=== PATIENT | female | born 1990 | race Caucasian/White ===

== ENCOUNTER 2016-10-27 14:53 | Emergency (ER) | payer MEDICAID ==
[~2016-10-27] VITALS: Ht 162.6 cm; Wt 53.1 kg
[2016-10-27 14:54] VITALS: BP 136/90
[2016-10-27] MEDS ORDERED: PENI500T PO (15:50)
[2016-10-27] MEDS ORDERED: NORCOTAB PO (15:50)
== END 2016-10-27 16:01 | disposition home or self-care (01) ==
LOC: M ED 14:53
DX: K02.9 Dental caries, unspecified (principal); F17.210 Nicotine dependence, cigarettes, uncomplicated

== ENCOUNTER 2017-08-13 17:18 | Emergency (ER) | payer SELFPAY, MEDICAID, OTHER ==
[2017-08-13 19:19] LABS: HEMOGLOBIN 12.9 g/dl (12.0-15.5); MEAN CORPUSCULAR HGB CONC 33.1 g/dl (32.0-36.5); MEAN CORPUSCULAR VOLUME 84.6 fl (80.0-96.0); PLATELET COUNT, AUTOMATED 116 10^3/uL (150-450); RED BLOOD COUNT 4.61 10^6/uL (4.00-5.40); RED CELL DISTRIBUTION WIDTH 14.3 % (11.5-14.5); WHITE BLOOD COUNT 3.8 10^3/uL (4.0-10.0)
[2017-08-13 19:47] LABS: ADD MANUAL DIFFER YES; ALBUMIN 3.6 GM/DL (3.2-5.2); ALBUMIN/GLOBULIN RATIO 0.92 (1.00-1.93); ALKALINE PHOSPHATASE 82 U/L (45-117); ALT/SGPT 100 U/L (12-78); ANION GAP 5 MEQ/L (8-16); AST/SGOT 119 U/L (7-37); BILIRUBIN,DIRECT 0.1 MG/DL (0.0-0.2); BILIRUBIN,TOTAL 0.4 MG/DL (0.2-1.0); BLOOD UREA NITROGEN 7 MG/DL (7-18); CALCIUM LEVEL 8.4 MG/DL (8.5-10.1); CARBON DIOXIDE LEVEL 27 MEQ/L (21-32); CHLORIDE LEVEL 108 MEQ/L (98-107); DIFF SLIDE NUMBER 337; FREE THYROXINE INDEX 3.2 % (1.3-4.8); GLOMERULAR FILTRATION RATE > 60.0 (>60); GLUCOSE, FASTING 83 MG/DL (70-100); POSITIVE MORPH POS FLAG; POTASSIUM SERUM 3.4 MEQ/L (3.5-5.1); SODIUM LEVEL 140 MEQ/L (136-145); T UPTAKE 31 % (30-39); THYROXINE (T4) 10.4 UG/DL (4.5-12.0); TOTAL PROTEIN 7.5 GM/DL (6.4-8.2)
[2017-08-13 19:54] LABS: AMORPHOUS SEDIMENT RFX LARGE (NEGATIVE); KETONE, URINE AUTO RFX NEGATIVE (NEGATIVE); LEUKOCYTE ESTERASE UR AUTO RFX NEGATIVE (NEGATIVE); MUCUS, URINE RFX LARGE (NEGATIVE); NITRITE, URINE AUTO RFX NEGATIVE (NEGATIVE); RBC, URINE AUTO RFX 0 /HPF (0-3); SQUAM EPITHELIAL CELL UR AURFX 3 /HPF (0-6); WBC, URINE AUTO RFX 2 /HPF (0-3)
[2017-08-13 20:13] LABS: ATYPICAL LYMPH 14 % (0-5); EOSINOPHILS 1 % (0-5); LYMPHOCYTES 35 % (16-52); MONOCYTES 3 % (0-8); NEUTROPHILS 47 % (35-75); PLATELET ESTIMATE DECREASED (NORMAL)
[2017-08-13 20:35] LABS: CONTROL LINE MONO RF C INT CTR LINE PRESENT; MONO REFLEX EBV COMP POSITIVE (NEGATIVE)
== END 2017-08-13 20:55 | disposition home or self-care (01) ==
LOC: M ED 17:18
DX: D69.6 Thrombocytopenia, unspecified (principal); R53.81 Other malaise; R53.83 Other fatigue
CPT/HCPCS: 84443

== ENCOUNTER → 2017-08-24 | Outpatient (REF) | payer BC | LOC: M LAB REF 10:40 | DX: J02.9 Acute pharyngitis, unspecified (principal) | CPT/HCPCS: 87070; 87077 ==

== ENCOUNTER 2019-12-05 16:20 | Emergency (ER) | payer SELFPAY ==
[~2019-12-05 16:20] MED LIST: ALEV220C2 PO; HYDR-3715 PO; PENI500T PO
[2019-12-05] MEDS ORDERED: AUGMENTIN 875 MG TAB ONE (20:32)
[2019-12-05] MEDS ORDERED: AUGMENTIN 875 MG TAB As Ordered ONE (20:32)
== END 2019-12-05 20:30 | disposition home or self-care (01) ==
LOC: M ED 16:20
DX: L08.9 Local infection of the skin and subcutaneous tissue, unspecified (principal); S91.352A Open bite, left foot, initial encounter; W55.01XA Bitten by cat, initial encounter; Y92.099 Unspecified place in other non-institutional residence as the place of occurrence of the external cause; Y93.89 Activity, other specified; Y99.9 Unspecified external cause status

== ENCOUNTER → 2020-05-07 | Outpatient (CLI) | payer SELFPAY | LOC: M LABSMTC 11:09 | PROVIDERS: ATTEND Pediatrics | DX: Z20.822 Contact with and (suspected) exposure to COVID-19 (principal) ==

== ENCOUNTER → 2020-05-30 | Outpatient (CLI) | payer MEDICAID ==
--- NOTE | 2020-05-30 17:55 | REP ---
INDICATION: UMBILICAL HERNIA W/ OBSTRUCTION COMPARISON: None. TECHNIQUE: Real time mendez scale ultrasound examination using curved array transducer. FINDINGS: A very small fat containing periumbilical hernia is identified with a peritoneal defect of 7 mm on Valsalva. IMPRESSION: Small fat containing periumbilical hernia. <Electronically signed by Kyler Jensen > 05/30/20 [id number]
== END ==
LOC: M RAD 10:49
PROVIDERS: ATTEND Surgery
DX: K42.0 Umbilical hernia with obstruction, without gangrene (principal)

== ENCOUNTER → 2020-06-20 | Outpatient (CLI) | payer MEDICAID, SELFPAY ==
[~2020-06-20] MED LIST changes: +ACET-907 PO; +IBUP200C27 PO
== END ==
LOC: M LABSMTC 10:47
PROVIDERS: ATTEND Anesthesiology
DX: Z01.812 Encounter for preprocedural laboratory examination (principal); Z20.822 Contact with and (suspected) exposure to COVID-19

== ENCOUNTER 2020-06-25 05:56 | Day surgery (SDC) | payer MEDICAID ==
[~2020-06-25] VITALS: Ht 162.6 cm; Wt 69.6 kg
[2020-06-25] MEDS ORDERED: ceFAZolin SOD 2 GM in IV 1 EA IV ONE (06:00)
[2020-06-25] MEDS ORDERED: LR 1,000 ML IV ONE (06:00)
[2020-06-25] MEDS ORDERED: LIDOCAINE 1% MDV 20ML VIAL SQ PRN (06:00)
[2020-06-25 06:24] LABS: HEMATOCRIT 37.3 % (36.0-47.0); HEMOGLOBIN 11.9 g/dl (12.0-15.5); MEAN CORPUSCULAR HEMOGLOBIN 28.4 pg (27.0-33.0); MEAN CORPUSCULAR HGB CONC 31.9 g/dl (32.0-36.5); PLATELET COUNT, AUTOMATED 281 10^3/uL (150-450); RED BLOOD COUNT 4.19 10^6/uL (4.00-5.40); WHITE BLOOD COUNT 6.4 10^3/uL (4.0-10.0)
[2020-06-25] MEDS ORDERED: SCOPOLAMINE 1MG TRANSDERMAL PATCH As Ordered ONE (07:09)
[2020-06-25] MEDS ORDERED: BUPIVACAINE/EPIN 0.25% 30 ML VIAL As Ordered ONE (07:16)
[2020-06-25] MEDS ORDERED: SCOPOLAMINE 1MG TRANSDERMAL PATCH TOP ONE (07:20)
[2020-06-25] MEDS ORDERED: ACETAMINOPHEN 1000MG 100ML IV BTL (OFIRMEV) (J0131 PER 10MG) As Ordered ONE (07:52)
[2020-06-25] MEDS ORDERED: KETOROLAC 60MG 2ML VIAL As Ordered ONE (07:52)
[2020-06-25] MEDS ORDERED: ONDANSETRON 4MG/2ML VIAL As Ordered ONE ×2 (07:52→08:50)
[2020-06-25] MEDS ORDERED: METOCLOPRAMIDE INJ 10MG/2ML VIAL (J2765 PER 1) As Ordered ONE (07:52)
[2020-06-25] MEDS ORDERED: fentaNYL 250 MCG/5 ML INJECTION (J3010) As Ordered ONE (07:52)
[2020-06-25] MEDS ORDERED: ePHEDrine SULFATE 25 MG/5 ML(5MG/ML) SYRINGE As Ordered ONE (07:52)
[2020-06-25] MEDS ORDERED: propofoL 200 MG/20 ML VIAL As Ordered ONE (07:52)
[2020-06-25] MEDS ORDERED: MIDAZOLAM INJ 2MG/2ML VIAL (J2250 PER 1MG) As Ordered ONE (07:52)
[2020-06-25] MEDS ORDERED: SUGAMMADEX SODIUM 500 MG/5 ML VIAL (BRIDION) As Ordered ONE (07:52)
[2020-06-25] MEDS ORDERED: dexameTHASONE 4 MG/ML 1ML VIAL (J1100 PER 1MG) As Ordered ONE (07:52)
[2020-06-25] MEDS ORDERED: ROCURONIUM BROMIDE 50 MG/5 ML VIAL As Ordered ONE (07:52)
[2020-06-25] MEDS ORDERED: LIDOCAINE 2% 100MG/5ML SDV (FOR ANES.) As Ordered ONE (07:52)
[2020-06-25] MEDS ORDERED: oxyCODONE 5MG TAB PO PRN (08:55)
[2020-06-25] MEDS ORDERED: NORCO, ANEXSIA 5/325MG TABLET (HYDROcodone/ACETAMINOPHEN) PO PRN (08:55)
[2020-06-25] MEDS ORDERED: HYDROMORPHONE HCL 0.5 MG/ 0.5 ML SYRINGE (J1170 PER 1) IV PRN (08:55)
[2020-06-25] MEDS ORDERED: LR 1,000 ML IV SCH (08:55)
[2020-06-25] MEDS ORDERED: fentaNYL 100 MCG/2 ML INJECTION (J3010) IV PRN (08:55)
[2020-06-25] MEDS ORDERED: ONDANSETRON 4MG/2ML VIAL IV PRN (08:55)
[2020-06-25 10:30] VITALS: BP 137/82
--- NOTE | 2020-06-25 10:52 | RO ---
OPERATIVE NOTE DATE OF OPERATION: 06/25/2020 PREOPERATIVE DIAGNOSIS: Incarcerated umbilical hernia. POSTOPERATIVE DIAGNOSIS: Incarcerated umbilical hernia. PROCEDURE: Robotic repair of incarcerated umbilical hernia. SURGEON: Naveed Hayden DO DIRECTOR OF DIGITAL MARKETING: Ciara Greenberg ANESTHESIA: General. EBL: 5. COMPLICATIONS: None. INDICATIONS FOR PROCEDURE: The patient is a 29-year-old female who presents with periumbilical pain, found to have lump on exam. Ultrasound was completed to confirm the findings of a small less than 1 cm umbilical hernia. Recommendation made to proceed with robotic repair. Risks and benefits of the procedure not limited to but including bleeding, infection, hernia recurrence, hernia formation, damage to surrounding structures, need for further surgery were discussed in detail with the patient, informed consent was obtained and procedure planned. DESCRIPTION OF PROCEDURE: The patient was brought back to operating room 7, after sufficient sedation the abdomen was sterilely prepped and draped. Time out was done to confirm proper patient, proper procedure. Following that an 8 mm incision was made in left upper quadrant, Veress needle inserted and abdomen was insufflated to 15 mmHg. The Veress needle was removed and 8 mm Optiview port was used to gain access to the abdomen. Once the abdomen was entered two more ports were placed, one subxiphoid just left of midline and one in right upper quadrant. The periumbilical region was examined. Horizontal incision was made into the preperitoneal space. Preperitoneal space was dissected inferiorly heading down around the umbilicus and hernia sac was dissected free. Once that was carefully dissected free the hernia defect was identified, it was very small. #0 Stratafix suture was used to reapproximate the small defect. This was covered with a 3 cm round ProGrip mesh. The peritoneum was then closed over top of this with running 2-0 V-Loc suture. This ended the procedure. The patient tolerated the procedure well. [place] were all removed. The ports were removed, abdomen was desufflated. Skin incisions closed with 4-0 Vicryl subcuticular sutures. The abdomen was cleaned and dried. Steri-Strips and 4 x 4 tapes were applied. This ended the procedure.
== END 2020-06-25 10:30 | disposition home or self-care (01) ==
LOC: M SDC 05:56
PROVIDERS: ATTEND Surgery
DX: K42.0 Umbilical hernia with obstruction, without gangrene (principal)
CPT/HCPCS: 36415; 49653; 81025; 85027; C1781; J0131; J0690; J1100; J1885; J2250; J2405; J2765; J3010; S2900

== ENCOUNTER → 2024-06-14 | Outpatient (REF) | payer MEDICAID, OTHER | LOC: M LAB REF 16:54 | PROVIDERS: ATTEND Physician Assistant | DX: B34.9 Viral infection, unspecified (principal) ==

== ENCOUNTER 2024-07-20 09:34 | Day surgery (SDC) | payer OTHER ==
[~2024-07-20] VITALS: Ht 162.6 cm; Wt 67.5 kg
[2024-07-20] MEDS: ONDANSETRON 4MG 2ML VIAL IV ONE (09:56)
[2024-07-20] MEDS: NS (Normal Saline) 0.9% 1,000 ML IV ONE ×2 (09:57→10:35)
[2024-07-20] MEDS: fentaNYL 100 MCG/2 ML INJECTION IV ONE (09:57)
[2024-07-20 10:01] LABS: BASO % 0.3 % (0.0-1.0); HEMATOCRIT 29.6 % (36.0-47.0); HEMOGLOBIN 9.6 g/dl (12.0-15.5); LYMPH # 1.9 10^3/uL (1.5-5.0); LYMPH % 14.3 % (24.0-44.0); MEAN CORPUSCULAR HEMOGLOBIN 28.4 pg (27.0-33.0); MEAN CORPUSCULAR HGB CONC 32.4 g/dl (32.0-36.5); MEAN CORPUSCULAR VOLUME 87.6 fl (80.0-96.0); MONO # 0.6 10^3/uL (0.0-0.8); MONO % 4.4 % (2.0-8.0); NEUTROPHILS # 10.4 10^3/uL (1.5-8.5); NEUTROPHILS % 80.4 % (36.0-66.0); PLATELET COUNT, AUTOMATED 338 10^3/uL (150-450); RED BLOOD COUNT 3.38 10^6/uL (4.00-5.40)
[2024-07-20] MEDS ORDERED: LIDOCAINE 2% 100MG/5ML SDV (FOR ANES.) As Ordered ONE (10:26)
[2024-07-20] MEDS ORDERED: fentaNYL 250 MCG/5 ML INJECTION As Ordered ONE (10:26)
[2024-07-20] MEDS ORDERED: ROCURONIUM BROMIDE 50MG/5ML VIAL As Ordered ONE (10:26)
[2024-07-20] MEDS ORDERED: propofoL 200 MG/20 ML VIAL As Ordered ONE (10:26)
[2024-07-20] MEDS ORDERED: MIDAZOLAM INJ 2MG/2ML VIAL As Ordered ONE (10:27)
[2024-07-20] MEDS ORDERED: dexmedeTOMIDine (4MCG/ML)200MCG/50ML BTL (PRECEDEX) As Ordered ONE (10:28)
[2024-07-20 10:31] LABS: BLOOD UREA NITROGEN 16 MG/DL (9-23); CALCIUM LEVEL 7.9 MG/DL (8.5-10.1); CARBON DIOXIDE LEVEL 24 MMOL/L (20-31); CHLORIDE LEVEL 108 MMOL/L (98-107); CREATININE FOR GFR 0.58 MG/DL (0.55-1.30); GLOMERULAR FILTRATION RATE > 60.0 (>60); GLUCOSE, FASTING 142 MG/DL (60-100); SODIUM LEVEL 140 MMOL/L (136-145)
[2024-07-20 10:43] LABS: HCG, SERUM QUANTITATIVE 11878.3 MIU/ML (<4.2)
[2024-07-20] MEDS ORDERED: LIDOCAINE 5% OINT 30GM TUBE As Ordered ONE (11:07)
[2024-07-20] MEDS ORDERED: ePHEDrine SULFATE 25 MG/5 ML(5MG/ML) SYRINGE As Ordered ONE (11:14)
[2024-07-20] MEDS ORDERED: PHENYLephrine 500MCG 5ML (100MCG/ML) SYRINGE As Ordered ONE (11:14)
[2024-07-20] MEDS ORDERED: SUGAMMADEX SODIUM 500 MG/5 ML VIAL (BRIDION) As Ordered ONE (12:26)
[2024-07-20] MEDS: METHYLENE BLUE 0.5% (5MG/ML) 10 ML AMP (PROVAYBLUE) As Ordered ONE (12:27)
[2024-07-20] MEDS: ONDANSETRON 4MG 2ML VIAL IV PRN (13:30)
[2024-07-20 13:37] LABS: HEMATOCRIT 32.2 % (36.0-47.0); HEMOGLOBIN 10.6 g/dl (12.0-15.5); MEAN CORPUSCULAR HEMOGLOBIN 29.6 pg (27.0-33.0); MEAN CORPUSCULAR HGB CONC 32.9 g/dl (32.0-36.5); MEAN CORPUSCULAR VOLUME 89.9 fl (80.0-96.0); RED BLOOD COUNT 3.58 10^6/uL (4.00-5.40); WHITE BLOOD COUNT 21.7 10^3/uL (4.0-10.0)
[2024-07-20 13:45] LABS: PLATELET COUNT, AUTOMATED 152 10^3/uL (150-450)
[2024-07-20] MEDS: METOCLOPRAMIDE INJ 10MG/2ML VIAL IV PRN (13:45)
[2024-07-20 15:50] VITALS: BP 96/51; TEMP 97; O2SAT 100
[2024-07-20] MEDS ORDERED: ACET-897 PO (18:09)
[2024-07-20] MEDS ORDERED: IBUP80TA PO (18:09)
[2024-07-21] MEDS ORDERED: ACET-683 PO (08:44)
[2024-07-21] MEDS ORDERED: VENTAER INH (08:44)
== END 2024-07-20 16:00 | disposition home or self-care (01) ==
LOC: M ED 09:34 → EDBD 09:34 → M SDC 10:35
PROVIDERS: ATTEND Obstetrics & Gynecology
DX: O00.102 Left tubal pregnancy without intrauterine pregnancy (principal); K66.1 Hemoperitoneum
CPT/HCPCS: 36415; 59151; 76801; 76817; 80047; 80048; 84702; 85025; 85027; 86850; 86900; 86901; 86920; 88305; 93041; 94760; 99285; J0665; J1100; J2250; J2371; J2405; J2765; J3010

== ENCOUNTER 2024-07-20 21:15 | Observation (INO) | payer OTHER ==
[~2024-07-20] VITALS: Ht 162.6 cm; Wt 62.3 kg
[~2024-07-20 21:15] MED LIST changes: +ACET-897 PO; +IBUP80TA PO
[2024-07-20 21:55] LABS: BASO % 0.1 % (0.0-1.0); HEMATOCRIT 29.1 % (36.0-47.0); HEMOGLOBIN 9.9 g/dl (12.0-15.5); LYMPH # 0.8 10^3/uL (1.5-5.0); LYMPH % 4.3 % (24.0-44.0); MEAN CORPUSCULAR HEMOGLOBIN 29.7 pg (27.0-33.0); MEAN CORPUSCULAR VOLUME 87.4 fl (80.0-96.0); MONO # 0.5 10^3/uL (0.0-0.8); MONO % 3.1 % (2.0-8.0); NEUTROPHILS # 16.3 10^3/uL (1.5-8.5); NEUTROPHILS % 91.9 % (36.0-66.0); RED BLOOD COUNT 3.33 10^6/uL (4.00-5.40); WHITE BLOOD COUNT 17.7 10^3/uL (4.0-10.0)
[2024-07-20 22:09] LABS: PLATELET COUNT, AUTOMATED 277 10^3/uL (150-450)
[2024-07-20 22:15] LABS: D-DIMER QUANT 0.55 ug/mL (<0.5); INR 1.03; PROTHROMBIN TIME 13.8 SECONDS (12.5-14.5)
[2024-07-20 22:17] LABS: CK-MB VALUE MASS 3.1 NG/ML (<3.6)
[2024-07-20 22:18] LABS: LIPASE 21 U/L (12-53)
[2024-07-20 22:20] LABS: ALBUMIN 3.3 G/DL (3.2-5.2); ALKALINE PHOSPHATASE 39 U/L (35-104); ALT/SGPT 13 U/L (7.0-40); AST/SGOT 17 U/L (<34); BILIRUBIN,DIRECT 0.2 MG/DL (<0.4); BILIRUBIN,TOTAL 0.7 MG/DL (0.3-1.2); BLOOD UREA NITROGEN 12 MG/DL (9-23); CALCIUM LEVEL 7.8 MG/DL (8.5-10.1); CARBON DIOXIDE LEVEL 22 MMOL/L (20-31); CHLORIDE LEVEL 107 MMOL/L (98-107); CPK CREATINE PHOSPHOKINASE 258 U/L (34-145); CREATININE FOR GFR 0.56 MG/DL (0.55-1.30); GLOMERULAR FILTRATION RATE > 60.0 (>60); GLUCOSE, FASTING 147 MG/DL (60-100); POTASSIUM SERUM 4.2 MMOL/L (3.5-5.1); SODIUM LEVEL 137 MMOL/L (136-145); TOTAL PROTEIN 5.8 G/DL (5.7-8.2)
[2024-07-20 22:21] LABS: THYROID STIMULATING HORMONE 1.512 uIU/ML (0.55-4.78); THYROXINE (T4) 8.7 UG/DL (4.5-10.9)
[2024-07-20] MEDS: ONDANSETRON 4MG 2ML VIAL IV ONE (22:25)
[2024-07-20] MEDS: HYDROMORPHONE HCL 0.5 MG/ 0.5 ML SYRINGE IV PRN (22:25)
[2024-07-20] MEDS: NS (Normal Saline) 0.9% 1,000 ML IV ONE (22:25)
[2024-07-20] MEDS ORDERED: ISOVUE-370 76% 100ML VIAL As Ordered ONE (22:27)
[2024-07-20] MEDS: diazePAM 10MG/2ML SYRINGE IV ONE (22:55)
[2024-07-21] VITALS (10 sets, daily range): BP systolic 87–102; BP diastolic 48–59; TEMP 98.4–100.4; O2SAT 96–100
[2024-07-21] MEDS: IBUPROFEN 600MG TAB PO ONE (00:48)
[2024-07-21] MEDS: PERCOCET 5MG/325MG TAB PO ONE (00:49)
[2024-07-21] MEDS ORDERED: HYDROMORPHONE HCL 0.5 MG/ 0.5 ML SYRINGE IV PRN (07:00)
[2024-07-21 07:31] LABS: BASO % 0.3 % (0.0-1.0); LYMPH # 1.8 10^3/uL (1.5-5.0); LYMPH % 12.7 % (24.0-44.0); MEAN CORPUSCULAR HEMOGLOBIN 29.7 pg (27.0-33.0); MEAN CORPUSCULAR HGB CONC 33.9 g/dl (32.0-36.5); MEAN CORPUSCULAR VOLUME 87.5 fl (80.0-96.0); MONO # 1.1 10^3/uL (0.0-0.8); MONO % 7.6 % (2.0-8.0); NEUTROPHILS # 11.3 10^3/uL (1.5-8.5); NEUTROPHILS % 79.1 % (36.0-66.0); RED BLOOD COUNT 2.63 10^6/uL (4.00-5.40); WHITE BLOOD COUNT 14.3 10^3/uL (4.0-10.0)
[2024-07-21 07:35] LABS: HEMOGLOBIN 7.8 g/dl (12.0-15.5)
[2024-07-21 07:36] LABS: PLATELET COUNT, AUTOMATED 172 10^3/uL (150-450)
[2024-07-21] MEDS: NS (Normal Saline) 0.9% 1,000 ML IV ONE (07:38)
[2024-07-21] MEDS: ONDANSETRON 4MG 2ML VIAL IV ONE (07:38)
[2024-07-21] MEDS ORDERED: ACET-683 PO (08:44)
[2024-07-21] MEDS ORDERED: VENTAER INH (08:44)
[2024-07-21] MEDS ORDERED: HOME MED LIST COMPLETE! XX SCH (08:45)
[2024-07-21] MEDS ORDERED: CYCLOBENZAPRINE 10MG TABLET PO PRN (09:00)
[2024-07-21] MEDS ORDERED: oxyCODONE 5MG TAB PO PRN (09:20)
[2024-07-21] MEDS ORDERED: PROMETHAZINE 25MG SUPP PR PRN (09:20)
[2024-07-21] MEDS: LR 1,000 ML IV SCH (09:57)
[2024-07-21] MEDS: SIMETHICONE 80MG CHEW TAB PO PRN (10:19)
[2024-07-21] MEDS: DOCUSATE SODIUM 100MG CAPSULE PO SCH (10:20)
[2024-07-21] MEDS: KETOROLAC 30 MG/ML 1ML VIAL IV SCH (10:20)
[2024-07-21] MEDS: PROMETHAZINE 25MG/ML 1ML VIAL IV PRN (11:53)
[2024-07-21] MEDS: diphenhydrAMINE 25MG CAP PO STA (14:57)
[2024-07-21] MEDS: ACETAMINOPHEN 500 MG TAB PO STA (14:58)
[2024-07-21] MEDS: CALCIUM GLUCONATE 1,000 MG in DEXTROSE 5% (D5W) MINI-BAG PLU 100 ML IV ONE (16:56)
[2024-07-21 20:12] LABS: HEMATOCRIT 27.9 % (36.0-47.0); HEMOGLOBIN 9.6 g/dl (12.0-15.5); MEAN CORPUSCULAR HEMOGLOBIN 29.6 pg (27.0-33.0); MEAN CORPUSCULAR HGB CONC 34.4 g/dl (32.0-36.5); MEAN CORPUSCULAR VOLUME 86.1 fl (80.0-96.0); PLATELET COUNT, AUTOMATED 175 10^3/uL (150-450); RED BLOOD COUNT 3.24 10^6/uL (4.00-5.40)
[2024-07-21] MEDS: oxyCODONE 5MG TAB PO PRN (20:51)
[2024-07-22] VITALS: BP 93/57; TEMP 99.8; O2SAT 96
[2024-07-22 04:30] VITALS: BP 102/60; TEMP 100.4; O2SAT 93
[2024-07-22 05:57] VITALS: TEMP 99.6
[2024-07-22 06:23] LABS: BASO % 0.3 % (0.0-1.0); HEMATOCRIT 24.6 % (36.0-47.0); HEMOGLOBIN 8.5 g/dl (12.0-15.5); LYMPH # 1.4 10^3/uL (1.5-5.0); LYMPH % 13.9 % (24.0-44.0); MEAN CORPUSCULAR HEMOGLOBIN 29.3 pg (27.0-33.0); MEAN CORPUSCULAR HGB CONC 34.6 g/dl (32.0-36.5); MEAN CORPUSCULAR VOLUME 84.8 fl (80.0-96.0); MONO # 0.7 10^3/uL (0.0-0.8); MONO % 6.3 % (2.0-8.0); NEUTROPHILS # 8.1 10^3/uL (1.5-8.5); PLATELET COUNT, AUTOMATED 148 10^3/uL (150-450); WHITE BLOOD COUNT 10.3 10^3/uL (4.0-10.0)
[2024-07-22 08:00] VITALS: BP 102/62; TEMP 99.2; O2SAT 92
[2024-07-22 08:31] LABS: KETONE, URINE AUTO RFX NEGATIVE (NEGATIVE); MUCUS, URINE RFX SMALL (NEGATIVE); NITRITE, URINE AUTO RFX NEGATIVE (NEGATIVE); RBC, URINE AUTO RFX 8 /HPF (0-3); SQUAM EPITHELIAL CELL UR AURFX 2 /HPF (0-6)
[2024-07-22 08:35] LABS: LEUKOCYTE ESTERASE UR AUTO RFX 1+ (NEGATIVE); WBC, URINE AUTO RFX 21 /HPF (0-3)
[2024-07-22] MEDS ORDERED: CYCL10TA20 PO (11:28)
[2024-07-22] MEDS ORDERED: OXYC-517 PO (11:28)
[2024-07-22] MEDS ORDERED: FERR325T3 PO (11:28)
[2024-07-22 12:00] VITALS: BP 97/62; TEMP 99.1; O2SAT 97
[2024-07-22] MEDS: IBUPROFEN 800 MG TAB PO SCH (12:14)
== END 2024-07-22 13:30 | disposition home or self-care (01) ==
LOC: M ED 21:15 → M ED INP 07-21 09:34 → M PED 07-21 11:25
PROVIDERS: ADMIT Obstetrics & Gynecology; ATTEND Obstetrics & Gynecology
DX: G89.18 Other acute postprocedural pain (principal); D64.9 Anemia, unspecified
CPT/HCPCS: 36415; 36430; 71045; 71275; 74177; 80047; 80053; 81001; 82248; 82550; 82553; 83690; 84436; 84443; 84484; 85025; 85027; 85379; 85610; 86850; 86900; 86901; 86920; 87086; 93005; 93041; 94760; 96361; 96374; 96375; 96376; 99285; J0612; J1171; J1885; J2405; J2550; J3360; P9016; Q9967